=== PATIENT | male | born 1995 | race American Indian/Alaskan Native ===

== ENCOUNTER 2022-02-01 19:08 | Emergency (ER) | payer SELFPAY ==
[2022-02-01 19:15] VITALS: BP 180/90
[2022-02-02] MEDS ORDERED: LIDOCAINE (2%) 20 MG/1 ML VIAL 20 ML MDV INFILTRATI STA (01:37)
[2022-02-02] MEDS ORDERED: HYDROcodone/ACETAMINOPHEN 5-325 MG TAB PO STA (01:37)
--- NOTE | 2022-02-02 02:26 | Emergency Department Report ---
Upper Extremity - HPI Chief Complaint: Laceration/Recheck/Suture Stated Complaint: RIGHT WRIST LACERATION Time Seen by Provider: 02/02/22 01:36 Upper Extremity: Right Wrist Occurred When: Today Mechanism: Other (Was trying to hit a wasp on a glass window with a clipboard and upon striking the wasp with a clipboard on the glass broke the glass resulting in laceration to the volar aspect of the wrist in a irregular jagged fashion) Symptoms: Yes Pain with Movement, No Numbness, No Weakness, No Swelling ED Review of Systems ROS: Stated complaint: RIGHT WRIST LACERATION Other details as noted in HPI Comment: All other systems reviewed and negative Upper Extremity Exam - Exam General: Vital signs noted. No distress. Alert and acting appropriately. Head and Torso: No HEENT Abnormality, No Neck Tenderness, No Chest/Lungs Abnormality, No Abdominal Tenderness, No Back Tenderness Shoulder Exam: Yes Normal Range of Motion in Shoulder, No Shoulder Tenderness, No Clavicle Tenderness, No Shoulder Deformity, No AC Joint Tenderness Arm Exam: No Arm/Humerus Tenderness, No Arm Deformity Elbow: No Elbow Tenderness, No Normal Range of Motion in Elbow, No Elbow Deformity Forearm: No Forearm Tenderness, No Forearm Deformity, No Pain with Pronation, No Pain with Supination Wrist: Yes Wrist Tenderness, Yes Normal ROM in Wrist, No Wrist Deformity, No Snuffbox Tenderness, No Pain with Axial Thumb Compression Hand: Yes Normal ROM in Digit(s), No Hand Tenderness, No Hand Deformity, No Digit Tenderness, No Digit(s) Deformity, No Tendon Dysfunction CMS Exam: Yes Broken Skin, No Normal Distal Pulses, No Normal Capillary Refill, No Normal Distal Sensation Hand L/R Front: 1 - Area of jagged laceration. Thumb full range of motion no snuffbox tenderness ED Course Vital Signs 02/01/22 02/02/22 19:12 01:43 Temperature 98 F Pulse Rate 86 Respiratory 18 16 Rate Blood Pressure 180/90 [Right] O2 Sat by Pulse 97 Oximetry - Laceration /Wound Repair Right Wrist Wound Length (cm): 5 Wound's Depth, Shape: irregular Wound Explored: clean Betadine Prep?: Yes Anesthesia: 1% Lidocaine Wound Debrided: minimal Wound Repaired With: sutures Suture Size/Type: 3:0 Number of Sutures: 6 Critical care attestation.: If time is entered above; I have spent that time in minutes in the direct care of this critically ill patient, excluding procedure time. ED Disposition Clinical Impression: Laceration of wrist Disposition: HOME / SELF CARE / HOMELESS Is pt being admited?: No Does the pt Need Aspirin: No Condition: Stable Instructions: Laceration Care, Adult, Sutured Wound Care Additional Instructions: Seen emergency department for lacerations to wrist on broken glass 6 6 stitches were placed with no complications keep wound clean antibacterial soap and water. Please follow-up with your doctor to be evaluated for possible removal in 7 to 10 days Referrals: SHADY GIRALDO MD [Primary Care Provider] - 3-5 Days
== END 2022-02-02 03:02 | disposition home or self-care (01) ==
LOC: ED 19:08
DX: S61.511A Laceration without foreign body of right wrist, initial encounter (principal); X58.XXXA Exposure to other specified factors, initial encounter; Y93.89 Activity, other specified; Y92.89 Other specified places as the place of occurrence of the external cause; Y99.8 Other external cause status
CPT/HCPCS: 12002; 99283; J3490

== ENCOUNTER 2022-02-04 12:02 | Emergency (ER) | payer SELFPAY ==
[2022-02-04] MEDS ORDERED: NEOMY 3.5 MG/BACIT 400 UNITS/POLY B 5000 UNITS/GM OINT PACKET TP ONE (13:38)
--- NOTE | 2022-02-04 13:39 | Emergency Department Report ---
ED General Adult HPI - General Chief complaint: Medical Clearance Stated complaint: FOLLOW-UP Time Seen by Provider: 02/04/22 13:24 Source: patient Mode of arrival: Ambulatory Limitations: No Limitations - History of Present Illness Initial comments: 26-year-old male returns to the ER for wound check and he stated that his work requesting further details about injury for WC. Patient suffered a laceration to the volar aspect of his right wrist 3 days ago. He was seen here and had lack repaired with sutures. He states that despite him bringing his discharge instructions to his job, he states that his job is requiring additional details about the injury to determine if is serious enough for them to approve [employer]. Patient states that the wound is still sore. He has been keeping it clean with peroxide and antibacterial soap and keeping it covered. He has not seen any bleeding, pus drainage or worsening redness. Patient states that he tried to follow-up with her [employer] but he was unable to get an appointment. Patient states that he does not know if there is a clinic that his job refers their [employer] patients. He states that they are not telling him much. Complaint: Wound check and work requesting further details about injury for WC -: days(s) (3) - Related Data Home Medications Medication Instructions Recorded Confirmed Last Taken No Known Home Medications [No 02/04/22 02/04/22 Unknown Reported Home Medications] Allergies Allergy/AdvReac Type Severity Reaction Status Date / Time No Known Allergies Allergy Verified 02/04/22 13:39 ED Review of Systems ROS: Stated complaint: FOLLOW-UP Other details as noted in HPI Comment: All other systems reviewed and negative Musculoskeletal: arthralgia Skin: other (lac to wrist) ED Past Medical Hx - Past Medical History Previous Medical History?: Yes Hx Asthma: Yes - Surgical History Past Surgical History?: No - Social History Smoking Status: Never Smoker Substance Use Type: Alcohol - Medications Home Medications: Home Medications Medication Instructions Recorded Confirmed Last Taken Type No Known Home Medications [No 02/04/22 02/04/22 Unknown History Reported Home Medications] ED Physical Exam - General Limitations: No Limitations General appearance: alert, in no apparent distress - Head Head exam: Present: atraumatic, normocephalic, normal inspection - Neck Neck exam: Present: normal inspection, full ROM. Absent: meningismus - Respiratory Respiratory exam: Present: normal lung sounds bilaterally. Absent: respiratory distress, wheezes, rales, rhonchi - Cardiovascular Cardiovascular Exam: Present: regular rate, normal rhythm, normal heart sounds - Expanded Upper Extremity Exam Right Forearm Wrist exam: Present: full ROM (He does have full range of motion of the wrist but it is painful.), tenderness (Tenderness to palpation mainly about the wound.), swelling (There is mild swelling mainly around the wound.), laceration (Repair lack noted to the volar aspect of the right wrist. Stitches still in place), erythema (Mild erythema mainly around the wound edges. No apparent signs of infection.). Absent: abrasion, ecchymosis, deformity, crepidus, dislocation, tenderness over anatomical snuff box, pain with axial thumb loading Neurosensory exam: Present: radial nerve intact, ulnar nerve intact, median nerve intact Vascular: Present: vascular compromise, normal capillary refill, radial pulse (Normal) - Neurological Exam Neurological exam: Present: alert, oriented X3, CN II-XII intact, normal gait - Psychiatric Psychiatric exam: Present: normal affect, normal mood - Skin Skin exam: Present: intact ED Course Vital Signs 02/04/22 02/04/22 02/04/22 12:14 13:38 13:56 Temperature 98.7 F 98.0 F Pulse Rate 89 76 Respiratory 16 18 Rate Blood Pressure 141/95 Blood Pressure 138/79 [Right] O2 Sat by Pulse 100 97 99 Oximetry ED Medical Decision Making - Medical Decision Making Patient wound does not appear to be infected. It appears to be healing well. Recommend that he no longer uses peroxide just use the antibacterial soap to clean. Recommend antibiotic ointment after each cleaning. Informed patient that most we can do here in the ER is to write a note stating that he is not allowed to keep his hand in water for long period of time and to limit use of the hand until the sutures can be removed which would be the next 7 to 10 days but recommend that he talks to his job and see if they have the occupational health clinic that they refer the patient is to when he comes to [employer]. injury for further evaluation. Patient expressed understanding and agree with plan. Patient was stable at time of discharge. Critical care attestation.: If time is entered above; I have spent that time in minutes in the direct care of this critically ill patient, excluding procedure time. ED Disposition Clinical Impression: Laceration of wrist Disposition: 01 HOME / SELF CARE / HOMELESS Is pt being admited?: No Does the pt Need Aspirin: No Condition: Stable Instructions: Laceration Care, Adult, [id number] Additional Instructions: I recommend that she keep the wound clean daily with soap and water. Wash briefly and dry well and then apply a thin layer of Neosporin and then keep it covered. Do this daily until its time for the sutures to be removed. I recommend not having you wrist in water for long period of time. Recommend limited use of your wrist until sutures are removed which will be the next 7 to 10 days. You can take motrin or tylenol for pain. Return to the ER if you develop any signs and symptoms of infection such as pus drainage, increasing pain, redness and swelling. Referrals: [facility] [Provider Group] - 3-5 Days [facility] [Provider Group] - 3-5 Days Forms: Work/School Release Form(ED) Time of Disposition: 13:37
[2022-02-04 13:57] VITALS: BP 138/79
== END 2022-02-04 13:56 | disposition home or self-care (01) ==
LOC: ED 12:02
DX: S61.511A Laceration without foreign body of right wrist, initial encounter (principal); J45.909 Unspecified asthma, uncomplicated; X58.XXXA Exposure to other specified factors, initial encounter; Y93.89 Activity, other specified; Y92.89 Other specified places as the place of occurrence of the external cause; Y99.8 Other external cause status
CPT/HCPCS: 99282